=== PATIENT | female | born 1995 | race Two or more races ===

== ENCOUNTER 2021-10-03 09:36 | Emergency (ER) | payer OTHER ==
[2021-10-03 09:41] VITALS: TEMP 98.2; BMI 23.4
[2021-10-03] MEDS ORDERED: SODIUM CHLORIDE 1,000 ML IV STA (11:15)
[2021-10-03] MEDS ORDERED: ACETAMINOPHEN 1000 MG/100 ML BAG IVPB ONE (11:16)
[2021-10-03] MEDS ORDERED: ACETAMINOPHEN INJECTION 100 ML IVPB ONE (11:40)
[2021-10-03 12:02] LABS: BASO % 0.3 % (0-2.0); EOS % 0.3 % (0-4.5); HEMATOCRIT 33.7 % (32.4-45.2); HEMOGLOBIN 11.2 GM/dL (10.7-15.3); MCH 26.6 pg (25.7-33.7); MCHC 33.2 g/dl (32.0-36.0); MEAN CELL VOLUME 80.1 fl (80-96); MEAN PLT VOLUME 8.2 fl (7.5-11.1); MONO % 5.4 % (3.8-10.2); PLATELET COUNT 265 10^3/uL (134-434); RBC 4.21 M/mm3 (3.60-5.2); RDW 14.6 % (11.6-15.6); WHITE BLOOD COUNT 5.3 K/mm3 (4.0-10.0)
[2021-10-03 12:20] LABS: CALCIUM 9.4 mg/dL (8.5-10.1)
[2021-10-03 12:21] LABS: BLOOD UREA NITROGEN 6.5 mg/dL (7-18)
[2021-10-03 12:22] LABS: HCG,QUALITATIVE URINE Negative
[2021-10-03 12:24] LABS: EPI CELLS 26 /uL (0-25.1); HYALINE CASTS 2 /uL (0-3.1); PH,URINE 6.5 (5.0-8.0); URINE APPEARANCE CLOUDY; URINE BILIRUBIN 1+ (NEGATIVE); URINE COLOR DK YELLOW; URINE GLUCOSE (UA) NEGATIVE (NEGATIVE); URINE KETONE NEGATIVE (NEGATIVE); URINE LEUK ESTERASE 2+ (NEGATIVE); URINE NITRITE POSITIVE (NEGATIVE); URINE PROTEIN NEGATIVE (NEGATIVE); URINE RBC 8 /uL (0-23.9); URINE WBC 27 /uL (0-25.8)
[2021-10-03 12:24] LABS: CREATININE 0.6 mg/dL (0.55-1.3)
[2021-10-03 12:25] LABS: BILIRUBIN,TOTAL 0.5 mg/dL (0.2-1); TOT PROT 7.4 g/dl (6.4-8.2)
[2021-10-03 14:29] VITALS: BP 109/68; PULSE 86
[2021-10-03 14:30] LABS: URINE BACTERIA 461.2 /uL (0-1359)
== END 2021-10-03 14:32 | disposition home or self-care (01) ==
LOC: JER 09:36
PROC: 3E033NZ Introduction of Analgesics, Hypnotics, Sedatives into Peripheral Vein, Percutaneous Approach (ICD-10-PCS; principal; 2021-10-03)
PROC: 3E0337Z Introduction of Electrolytic and Water Balance Substance into Peripheral Vein, Percutaneous Approach (ICD-10-PCS; 2021-10-03)
DX: N39.0 Urinary tract infection, site not specified (principal)
CPT/HCPCS: 36415; 74176-TC; 76830-TC; 80053; 81003; 83690; 84703; 85025; 87086; 99284-25

== ENCOUNTER 2021-12-06 18:08 | Emergency (ER) | payer OTHER ==
[2021-12-06 18:25] VITALS: BP 139/67; PULSE 102; RESP 16; TEMP 98.2; BMI 23.2
[2021-12-06 20:18] LABS: BASO % 0.5 % (0-2.0); EOS % 0.5 % (0-4.5); HCG,QUALITATIVE URINE Positive; HEMOGLOBIN 10.8 GM/dL (10.7-15.3); LYMPH % 29.9 % (8-40); MCH 27.1 pg (25.7-33.7); MCHC 33.7 g/dl (32.0-36.0); MEAN CELL VOLUME 80.6 fl (80-96); MEAN PLT VOLUME 8.3 fl (7.5-11.1); NEUT % 62.1 % (42.8-82.8); PLATELET COUNT 252 10^3/uL (134-434); RBC 3.97 M/mm3 (3.60-5.2); RDW 16.1 % (11.6-15.6); URINE APPEARANCE CLEAR; URINE BILIRUBIN NEGATIVE (NEGATIVE); URINE COLOR YELLOW; URINE GLUCOSE (UA) NEGATIVE (NEGATIVE); URINE KETONE NEGATIVE (NEGATIVE); URINE LEUK ESTERASE NEGATIVE (NEGATIVE); URINE NITRITE NEGATIVE (NEGATIVE); URINE PROTEIN NEGATIVE (NEGATIVE); WHITE BLOOD COUNT 6.3 K/mm3 (4.0-10.0)
[2021-12-06 20:35] LABS: CALCIUM 9.2 mg/dL (8.5-10.1)
[2021-12-06 20:36] LABS: BLOOD UREA NITROGEN 10.9 mg/dL (7-18)
[2021-12-06 20:39] LABS: CREATININE 0.6 mg/dL (0.55-1.3)
== END 2021-12-06 22:10 | disposition home or self-care (01) ==
LOC: JER 18:08
DX: O34.81 Maternal care for other abnormalities of pelvic organs, first trimester (principal); N83.201 Unspecified ovarian cyst, right side; Z3A.01 Less than 8 weeks gestation of pregnancy
CPT/HCPCS: 36415; 76817-TC; 80048; 81003; 84702; 84703; 85025; 86850; 86900; 86901; 87086; 99284-25

== ENCOUNTER 2022-03-26 06:30 | Emergency (ER) | payer OTHER ==
[2022-03-26 07:07] VITALS: BP 117/78; PULSE 100; RESP 19; TEMP 98.3; BMI 23.4
[2022-03-26] MEDS ORDERED: KETOROLAC TROMETHAMINE 30 MG/1 ML VIAL IM ONE (07:35)
[2022-03-26] MEDS ORDERED: guaiFENesin/D-M SUGAR-FREE/ACLHOL-FREE 118 ML BOTTLE PO ONE (07:36)
[2022-03-26] MEDS ORDERED: guaiFENesin/D-METHORPHAN HB 10 ML UNIT-DOSE CUPS ONE (08:09)
[2022-03-26] MEDS ORDERED: KETOROLAC TROMETHAMINE 30 MG/1 ML VIAL ONE (08:09)
== END 2022-03-26 09:42 | disposition home or self-care (01) ==
LOC: JER 06:30
PROC: 3E0233Z Introduction of Anti-inflammatory into Muscle, Percutaneous Approach (ICD-10-PCS; principal; 2022-03-26)
DX: R05.1 Acute cough (principal); J02.9 Acute pharyngitis, unspecified; J06.9 Acute upper respiratory infection, unspecified
CPT/HCPCS: 0241U-QW; 71045-TC-FY; 93005; 93010; 99285-25